=== PATIENT | female | born 1975 | race Caucasian/White ===

== ENCOUNTER 2025-01-14 23:51 | Inpatient (IN) | payer MEDICAID, OTHER ==
[~2025-01-14] VITALS: Ht 172.7 cm; Wt 68.0 kg
[2025-01-15 00:35] LABS: *BILIRUBIN,URIN NEGATIVE (NEGATIVE); *BLOOD, URINE NEGATIVE (NEGATIVE); *CLARITY,URINE CLEAR (CLEAR); *COLOR,URINE YELLOW (YELLOW); *KETONES,URINE NEGATIVE (NEGATIVE); *PROTEIN,URINE NEGATIVE (NEGATIVE); *UROBILINOGEN,URINE 0.2 E.U./dl (NORMAL); LEUKOCYTE ESTERASE ,URINE TRACE (NEGATIVE); NITRITE, URINE NEGATIVE (NEGATIVE); PH,URINE 5.5 (5.0-8.0); UGLUCOSE NEGATIVE (NEGATIVE)
[2025-01-15 00:38] LABS: BACTERIA,URINE FEW /HPF (NONE SEEN); MUCUS,URINE FEW /LPF (0-FEW); RBC,URINE 0-3 /HPF (0-3); SQUAMOUS EPITHELIAL CELL,UR FEW /HPF (NONE SEEN)
[2025-01-15 00:43] LABS: *URINE HCG, QUAL NEGATIVE (NEGATIVE)
[2025-01-15 01:13] LABS: BASOPHILS % (AUTO) 0.7 % (0.0-2.0); EOSINOPHILS # (AUTO) 0.4 K/uL (0.0-0.7); EOSINOPHILS % (AUTO) 7.8 % (0.0-7.0); HEMATOCRIT 30.9 % (31.2-41.9); HEMOGLOBIN 10.1 g/dL (10.9-14.3); LYMPHOCYTES # (AUTO) 1.1 K/uL (0.8-4.8); LYMPHOCYTES % (AUTO) 21.6 % (20.5-51.5); MEAN CORPUSCULAR HEMOGLOBIN 27.8 uug (24.7-32.8); MEAN CORPUSCULAR HGB CONC 33 g/dL (32.3-35.6); MEAN CORPUSCULAR VOLUME 85.3 fL (75.5-95.3); MONOCYTES # (AUTO) 0.4 K/uL (0.1-1.30); MONOCYTES % (AUTO) 7.4 % (0.0-11.0); NEUTROPHILS # (AUTO) 3.2 K/uL (1.8-8.9); NEUTROPHILS % (AUTO) 62.5 % (38.5-71.5); PLATELET COUNT (AUTO) 424 K/uL (179-408); RED BLOOD CELL COUNT(AUTO) 3.62 MIL/uL (3.63-4.92); RED CELL DISTRIBUTION WIDTH 14.6 % (12.3-17.7); WHITE BLOOD COUNT (AUTO) 5.2 K/uL (3.8-11.8)
[2025-01-15 01:16] LABS: DIFFERENTIAL COMMENT 1
[2025-01-15] MEDS ORDERED: CLINDAMYCIN 600 MG PIGGYBACK**ER OMNI IV ONE ×2 (01:18→05:27)
[2025-01-15] MEDS ORDERED: NEOMY/BACITRAC/POLYMI OINT 28.35 GM TUBE ONE (01:21)
[2025-01-15] MEDS: CLINDAMYCIN PHOSPHATE IV 600 MG in IV DEXTROSE 5% 100 ML IV ONE (01:22)
[2025-01-15 01:23] LABS: CALCIUM 8.6 mg/dL (8.5-10.1); CREATININE 0.7 mg/dL (0.6-1.3); POTASSIUM 4.1 mmol/L (3.5-5.1)
[2025-01-15 01:36] LABS: ALBUMIN 3.1 g/dL (3.4-5.0); BILIRUBIN,TOTAL 0.2 mg/dL (0.2-1.0); TOTAL PROTEIN, SERUM 7.4 g/dL (6.4-8.2)
[2025-01-15 01:41] LABS: C-REACTIVE PROTEIN 3.14 mg/dL (0.00-0.30)
[2025-01-15] MEDS ORDERED: KETOROLAC TROMETHAMINE 15 MG INJ ONE (01:43)
[2025-01-15] MEDS ORDERED: HYDROCODONE/APAP 5-325MG TABLET ONE (01:43)
[2025-01-15] MEDS: KETOROLAC TROMETHAMINE 15 MG INJ IVP ONE (01:48)
[2025-01-15] MEDS: HYDROCODONE/APAP 5-325MG TABLET PO ONE (01:48)
[2025-01-15 02:12] LABS: THYROID STIMULATING HORMONE 1.045 mIU/mL (0.358-3.740)
[2025-01-15] MEDS ORDERED: ACETAMINOPHEN 325 MG TABLET PO PRN (03:30)
[2025-01-15] MEDS ORDERED: ONDANSETRON 4 MG/2 ML VIAL IV PRN (03:30)
[2025-01-15] MEDS ORDERED: HYDROCODONE/APAP 5-325MG TABLET PO PRN (03:30)
[2025-01-15] MEDS ORDERED: MAGNESIUM HYDROXIDE 30 ML LIQUID UDC PO PRN (03:30)
[2025-01-15 04:30] VITALS: BP 114/75; TEMP 98.8; O2SAT 95
[2025-01-15] MEDS: CLINDAMYCIN PHOSPHATE IV 600 MG in IV DEXTROSE 5% 100 ML IV SCH (05:53)
[2025-01-15] MEDS: IV NS 1000 ML 1,000 ML IV SCH (05:53)
[2025-01-15] MEDS: PANTOPRAZOLE SODIUM 40 MG TABLET.DR PO SCH (06:06)
[2025-01-15 12:00] VITALS: BP 119/63; TEMP 97.6; O2SAT 97
[2025-01-15 19:53] VITALS: BP 127/87; TEMP 97.8; O2SAT 96
[2025-01-15] MEDS: ACIDOPHILUS/BULGARICUS CHEW TAB PO SCH (20:58)
[2025-01-16 07:15] LABS: BASOPHILS % (AUTO) 1.2 % (0.0-2.0); EOSINOPHILS # (AUTO) 0.3 K/uL (0.0-0.7); EOSINOPHILS % (AUTO) 6.3 % (0.0-7.0); HEMATOCRIT 31.6 % (31.2-41.9); HEMOGLOBIN 10.5 g/dL (10.9-14.3); LYMPHOCYTES % (AUTO) 25.3 % (20.5-51.5); MEAN CORPUSCULAR HEMOGLOBIN 28.1 uug (24.7-32.8); MEAN CORPUSCULAR HGB CONC 33 g/dL (32.3-35.6); MEAN CORPUSCULAR VOLUME 84.8 fL (75.5-95.3); MONOCYTES # (AUTO) 0.3 K/uL (0.1-1.30); NEUTROPHILS # (AUTO) 2.4 K/uL (1.8-8.9); NEUTROPHILS % (AUTO) 60.2 % (38.5-71.5); PLATELET COUNT (AUTO) 398 K/uL (179-408); RED BLOOD CELL COUNT(AUTO) 3.73 MIL/uL (3.63-4.92); RED CELL DISTRIBUTION WIDTH 14.1 % (12.3-17.7)
[2025-01-16 07:40] LABS: DIFFERENTIAL COMMENT 1
[2025-01-16 07:41] LABS: CALCIUM 8.6 mg/dL (8.5-10.1); CREATININE 0.6 mg/dL (0.6-1.3); PHOSPHOROUS 3.1 mg/dL (2.5-4.9)
[2025-01-16 08:00] VITALS: BP 105/69; TEMP 98.2; O2SAT 98
[2025-01-16 12:00] VITALS: BP 127/56; TEMP 98.4; O2SAT 97
[2025-01-16] MEDS ORDERED: CLIN300C12 PO (12:14)
[2025-01-16] MEDS ORDERED: ACID1TAB4 PO (12:14)
== END 2025-01-16 14:50 | disposition home or self-care (01) | DRG 383 ==
LOC: ER 23:58 → MEDSURG3 01-15 02:18
PROVIDERS: ATTEND Internal Medicine
PROC: 05HC33Z Insertion of Infusion Device into Left Basilic Vein, Percutaneous Approach (ICD-10-PCS; principal; 2025-01-15)
DX: L03.115 Cellulitis of right lower limb (principal); E44.1 Mild protein-calorie malnutrition; E88.09 Other disorders of plasma-protein metabolism, not elsewhere classified; I87.313 Chronic venous hypertension (idiopathic) with ulcer of bilateral lower extremity; L03.116 Cellulitis of left lower limb; F17.290 Nicotine dependence, other tobacco product, uncomplicated; F11.10 Opioid abuse, uncomplicated; R79.82 Elevated C-reactive protein (CRP); R59.0 Localized enlarged lymph nodes; L97.821 Non-pressure chronic ulcer of other part of left lower leg limited to breakdown of skin; L97.811 Non-pressure chronic ulcer of other part of right lower leg limited to breakdown of skin; D64.9 Anemia, unspecified; N39.0 Urinary tract infection, site not specified; I73.9 Peripheral vascular disease, unspecified; Z59.71 Insufficient health insurance coverage
CPT/HCPCS: 36415; 83550; 83735; 84100; 84443; 84703; 85025; 86140; 87077; 87086; G0378; J1885; J3490; J7040